=== PATIENT | female | born 1975 | race American Indian/Alaskan Native ===

== ENCOUNTER 2017-09-20 09:48 | Outpatient (CLI) | payer MEDICAID ==
--- NOTE | 2017-09-20 13:18 | Ultrasound Report ---
Pelvic and transvaginal sonography: History: Ovarian cyst. Abnormal uterine and vaginal bleeding. Findings: Uterus measures 9.7 x 5.9 x 4.9 cm. Endometrial thickness 10.1 mm. No mass within the myometrium. Right ovary 2.7 x 1.2 x 1.8 cm. No mass. Left ovary 4.7 x 2.9 x 2.8 cm. Simple cyst in the left ovary measures 1.4 cm complex cyst measures 2.6 cm thick next Minimal fluid in the cul-de-sac. Impression: Simple and complex cyst left ovary.
== END 2017-09-20 09:49 | disposition home or self-care (01) ==
LOC: US 09:48
PROVIDERS: ATTEND Nurse Practitioner Family
DX: N83.292 Other ovarian cyst, left side (principal)
CPT/HCPCS: 76830; 76856